=== PATIENT | female | born 1980 | race Caucasian/White ===

== ENCOUNTER 2018-10-27 16:29 | Emergency (ER) | payer MEDICAID ==
[~2018-10-27] VITALS: Ht 162.6 cm; Wt 79.9 kg
[2018-10-27 17:35] VITALS: Ht 162.6 cm; Wt 79.9 kg
[2018-10-27] MEDS ORDERED: DEXAMETHASONE 10 MG/ML 1 ML INJ IM ONE (19:00)
[2018-10-27] MEDS ORDERED: DIPHENHYDRAMINE 50 MG CAP PO ONE (19:00)
[2018-10-27] MEDS ORDERED: CETI10TA19 PO (19:58)
[2018-10-27] MEDS ORDERED: BEN25 PO (19:58)
[2018-10-27 20:22] VITALS: BP 120/70; PULSE 65; RESP 20
--- NOTE | 2018-10-27 21:50 | ERD ---
ER Documentation Chief Complaint Chief Complaint c/o generalized itching around the body. No stridor noted HPI History of Present Illness: 38-year-old female who denies a past medical history coming today with complaint of generalized itching itching to her body. Patient reports infestation of cockroaches at her home in which she is been using lots of RAID. Patient reports itching is been present for 3 days. Patient denies difficulty breathing. At home pharmacological/nonpharmacological treatment for symptoms: Denies Denies social concerns; Denies recent foreign travel ROS All systems reviewed and are negative except as per history of present illness. Medications Home Meds Active Scripts Diphenhydramine Hcl* (Benadryl*) 25 Mg Cap, 25 MG PO Q6 PRN for ITCHING/RASH, #30 TAB Prov:KARINE LASSITER NP 10/27/18 Cetirizine Hcl* (Cetirizine Hcl*) 10 Mg Tablet, 10 MG PO DAILY for ALLERGIES/COUGH/RASH, #30 TAB Prov:KARINE LASSITER V MANUFACTURING ENGINEERING INTERN 10/27/18 Allergies Allergies: Coded Allergies: No Known Drug Allergy (Verified Allergy, Unknown, 04/25/13) PMhx/Soc History of Surgery: Yes (GALL BLADDER, ) Anesthesia Reaction: No Hx Neurological Disorder: No Hx Respiratory Disorders: No Hx Cardiac Disorders: No Hx Psychiatric Problems: No Hx Miscellaneous Medical Probl: No Hx Alcohol Use: No Hx Substance Use: No Hx Tobacco Use: No Smoking Status: Never smoker Physical Exam Vitals Vital Signs Date Temp Pulse Resp B/P (MAP) Pulse Ox O2 O2 Flow FiO2 Time Delivery Rate 10/27/18 98.1 65 20 120/70 100 Room Air 20:22 (87) 10/27/18 98.4 73 20 117/73 100 17:35 (88) Physical Exam Const: No acute distress, afebrile Head: Atraumatic Eyes: Normal Conjunctiva ENT: Normal External Ears, Nose and Mouth. Neck: Full range of motion. No meningismus. Resp: Clear to auscultation bilaterally Cardio: Regular rate and rhythm, no murmurs Abd: Soft, non tender, non distended. No guarding, no masses, no rigidity Skin: No petechiae; macular papular rash on upper extremities, torso,, nose consistent with allergic reaction Back: No midline or flank tenderness Ext: No cyanosis, or edema Neur: Awake and alert x3, speaking in clear sentences, no focal deficits or facial asymmetry Psych: Normal Mood and Affect Results 24 hrs Laboratory Tests Test 10/27/18 18:45 POC Beta HCG, Qualitative NEGATIVE Current Medications Medications Dose Sig/Antonio Start Time Status Last (Trade) Ordered Route PRN Stop Time Admin Dose Reason Admin 10 mg ONCE ONCE 10/27/18 DC 10/27/18 Dexamethasone IM 19:00 10/27/18 19:07 (Decadron) 19:01 50 mg ONCE ONCE 10/27/18 DC 10/27/18 Diphenhydrami PO 19:00 10/27/18 19:07 ne HCl 19:01 (Benadryl) Procedures/MDM ED COURSE: ED course includes a thorough examination and history. The patient was stable throughout ED course. I kept the patient and/or family informed of laboratory and diagnostic imaging results throughout the ED course. LABS: Negative MEDICATIONS GIVEN IN ER: Diphenhydramine, dexamethasone Patient tolerated medication well with no adverse reactions. Patient reported improvement in pain. DIAGNOSTIC IMAGING: None PROCEDURES: None. MEDICAL DECISION MAKING: Low suspicion for life-threatening medical emergency. Low suspicion for infectious process. Otherwise healthy patient presenting with constellation of symptoms likely representing uncomplicated [x] as characterized by history, physical exam findings [, radiologic/lab findings]. Patient reassessment @ 1955: Rash severity and itching decreased. Patient hemodynamically stable. No respiratory distress, otherwise relatively well appearing and nontoxic. Disposition given. Patient educated on diagnoses, prescriptions, follow-up care, return precautions. Strict return precautions given for worsening condition; questions answered discharge. Patient verbalizes understanding of discharge instructions. PRESCRIPTIONS FOR HOME: []. DISPOSITION: DISCHARGE At this time, patient is stable for discharge and outpatient management. I have instructed the patient to follow-up with his/her primary care physician in 1-2 days. I have discussed with the patient the possibility of needing to see a specialist for further workup and imaging studies if symptoms persist. I have instructed the patient to promptly return to the ER for any new or worsening symptoms including increased pain, fever, nausea, vomiting, weakness or LOC. The patient and/or family expressed understanding of and agreement with this plan. All questions were answered. Home care instructions were provided. DISCLAIMER: Inadvertent spelling and grammatical errors are likely due to EHR/dictation software use and do not reflect on the overall quality of patient care. Also, please note that the electronic time recorded on this note does not necessarily reflect the actual time of the patient encounter. Departure Diagnosis: Primary Impression: Allergic reaction Condition: Stable Patient Instructions: First Aid: Allergic Reactions Ref[facility]: [facility] Usted se hernandez hecho un examen mdico de control que le indica que no est en berto condicin que requiera tratamiento urgente en el Departamento de Emergencia. Un estudio ms profundo y el tratamiento de diaz condicin pueden esperar sin ningn riesgo hasta que usted sea atendida/o en el consultorio de diaz mdico o berto clnica. Es responsabilidad suya arreglar berto bart para el seguimiento del kike. MANEJO DE CONDICIONES NO URGENTES EN EL FUTURO 1) Si usted tiene un mdico de atencin primaria: Usted debera llamar a diaz mdico de atencin primaria antes de venir al departamento de emergencia. Despus de las horas de consultorio, diaz doctor o diaz asociado/a est disponible por telfono. El mdico o enfermero de zeynep en el servicio telefnico puede asesorarle por leonardo medio para atender el problema, o kike contrario se puede programar berto bart. 2) Si usted no tiene un mdico de atencin primaria: Llame al mdico o clnica de referencia que aparece abajo gayatri las horas de consultorio para hacer berto bart para que le vean. CLINICAS: [facility] [phone] [address] [facility] [phone] [facility] [phone] [address] [facility] [phone] [address] [facility] [phone] [address] [facility] [phone] [address] [facility]. [facility] () Luiza se hernandez hecho un examen mdico de control que le indica que no est en berto condicin que requiera tratamiento urgente en el Departamento de Emergencia. Un estudio ms profundo y el tratamiento de diaz condicin pueden esperar sin ningn riesgo hasta que ted sea atendida/o en el consultorio de diaz mdico o berto clnica. Es responsabilidad suya arreglar berto bart para el seguimiento del kike. MANEJO DE CONDICIONES NO URGENTES EN EL FUTURO 1) Si usted tiene un mdico de atencin primaria: Luiza debera llamar a diaz mdico de atencin primaria antes de venir al departamento de emergencia. Despus de las horas de consultorio, diaz doctor o diaz asociado/a est disponible por telfono. El mdico o enfermero de zeynep en el servicio telefnico puede asesorarle por leonardo medio para atender el problema, o kike contrario se puede programar berto bart. 2) Si usted no tiene un mdico de atencin primaria: Llame al mdico o condado institucions de referencia que aparece abajo gayatri las horas de consultorio para hacer berto bart para que le vean. SI USTED NO PUEDE PAGAR PARA POLO UN MEDICO puede ir a: [facility] [address] [place] [address] [facility] [address] [place] [address] [facility] [address] [place] [address] PAR[address] GILDA [facility] [address] [place], [place] [id number] Additional Instructions: Google Translate utilizado para la traduccin de las siguientes lneas, por favor, disculpe los errores. * Consulte a diaz mdico de atencin primaria para obtener berto referencia para las pruebas de alergia. * Muchas kimberly por permitirnos participar en diaz cuidado. Diaz rocael y seguridad es nuestra principal prioridad en [facility]. Es importante leer todas las instrucciones de mario y la educacin que se proporcionan en diaz paquete de mario. Llame a diaz mdico de atencin primaria MAANA para berto bart gayatri los prximos 2 a 4 encinas y lleve toda la informacin y los medicamentos recetados. Llene las recetas y siga exactamente las instrucciones de la etiqueta. -Cetirizina es un antihistamnico que no debe causar somnolencia; tome jean pierre medicamento todos los encinas para los sntomas de alergia / tos / secrecin nasal / erupcin. -La difenhidramina es un antihistamnico que puede causar somnolencia; tome jean pierre medicamento todos los encinas para los sntomas de alergia / tos / secrecin nasal / erupcin / picazn. Si los sntomas empeoran y diaz proveedor no est disponible, regrese inmediatamente al Departamento de Emergencias. ----- Google Translate used for translation of following lines, please excuse errors. Thank you very much for allowing us to participate in your care. Your health and safety is our top priority at [facility]. It is important to read all discharge instructions and education provided in your discharge packet. *See your primary care doctor for referral for allergy testing.* Call your primary care doctor TOMORROW for an appointment during the next 2-4 days and bring all the information and medications prescribed. Have prescriptions filled and follow precisely the directions on the label. -Cetirizine is an antihistamine that should not cause drowsiness; take this medication every day for allergy-like symptoms/cough/runny nose/rash. -Diphenhydramine is an antihistamine that may cause drowsiness; take this medication every day for allergy-like symptoms/cough/runny nose/rash/ITCHING. If the symptoms get worse and your provider is unavailable, return to the Emergency Department immediately. KARINE LASSITER NP Oct 27, 2018 21:50
== END 2018-10-27 20:37 | disposition home or self-care (01) ==
LOC: FTE 16:29
DX: L29.9 Pruritus, unspecified (principal)
CPT/HCPCS: 81025; 96372; J1100; Z7502; Z7610